=== PATIENT | female | born 1945 | race African-American/Black ===

== ENCOUNTER 2017-05-14 11:39 | Emergency (ER) | payer MEDICARE, BC ==
[~2017-05-14] VITALS: Ht 165.1 cm; Wt 75.3 kg
--- NOTE | 2017-05-14 11:53 | NUR ---
SENT BY PMD FOR BILATERAL LEG SWELLING C/O LEG PAIN
[2017-05-14 12:43] LABS: HEMATOCRIT 35 % (33-45); HEMOGLOBIN 11.4 g/dL (11.5-14.8); MEAN CORPUSCULAR HEMOGLOBIN 27 PG (26.0-33.0); MEAN CORPUSCULAR HGB CONC 32 g/dl (31.0-36.0); MEAN CORPUSCULAR VOLUME 83 fL (82-100); PLATELET COUNT (AUTO) 277 /CMM (150-450); RDW COEFFICIENT OF VARIATION 18.9 (11.5-15.0); RED BLOOD CELL COUNT(AUTO) 4.28 MIL/uL (4.0-5.2); WHITE BLOOD COUNT (AUTO) 6.8 K/uL (4.3-11.0)
[2017-05-14 12:48] LABS: CALCIUM, SERUM 9.7 mg/dL (8.5-10.1); CREATININE 0.9 mg/dL (0.6-1.3); POTASSIUM 3.7 mmol/L (3.5-5.1)
[2017-05-14 12:49] LABS: INR 0.88 (0.87-1.13); PROTHROMBIN TIME 9.2 SECS (9.5-12.7)
--- NOTE | 2017-05-14 12:58 | NUR ---
QUALITY ASSURANCE SUPERVISOR AT BEDSIDE
[2017-05-14 13:01] LABS: ALBUMIN 3.9 g/dL (3.4-5.0); BILIRUBIN,TOTAL 0.2 mg/dL (0.2-1.0)
[2017-05-14 13:47] VITALS: BP 145/85
[2017-05-14 13:47] LABS: EOSINOPHILS % (MANUAL) 1 % (0-4); LYMPHOCYTES % (MANUAL) 26 % (16-48); MONOCYTES % (MANUAL) 2 % (0-11.0); NEUTROPHILS % (MANUAL) 71 (42-76)
== END 2017-05-14 13:48 | disposition home or self-care (01) ==
LOC: ER 11:43
DX: R60.0 Localized edema (principal); D64.9 Anemia, unspecified; E03.9 Hypothyroidism, unspecified; E78.00 Pure hypercholesterolemia, unspecified; I10 Essential (primary) hypertension; G43.909 Migraine, unspecified, not intractable, without status migrainosus; J44.9 Chronic obstructive pulmonary disease, unspecified; F17.210 Nicotine dependence, cigarettes, uncomplicated
CPT/HCPCS: 36415; 71010; 80048; 80076; 83880; 85025; 85610; 93005; 99285; 99406; A4606; Z7610